=== PATIENT | male | born 1955 | race Caucasian/White ===

== ENCOUNTER → 2017-05-25 | Outpatient (CLI) | payer BC, OTHER ==
--- NOTE | 2017-05-25 09:41 | Diagnostic Imaging Report ---
CLINICAL INDICATION: Patient with chronic low back pain with bilateral leg pain. No known injury. EXAM: MRI of the lumbar spine performed without IV contrast. Sequences include sagittal T2, sagittal T1, sagittal T2 fat-sat, and axial T2. COMPARISON: MRI of the lumbar spine without contrast dated 02/14/2014. FINDINGS: There is no acute lumbar spine fracture seen. There is multilevel lumbar spine degenerative disease with vertebral body spurs and facet arthropathy again noted. There is mixed Modic type I/type II degenerative signal changes involving the L1-L2 intervertebral region. Visualized portion of the distal thoracic spinal cord, conus medullaris, and cauda equina nerve roots are unremarkable. Conus medullaris tip is seen at the upper L1 vertebral body level. There is no significant paraspinal soft tissue abnormality. T12-L1: There is no significant abnormality. L1-L2: Stable diffuse disc bulge and moderate to severe loss of intervertebral disc height. Stable mild bilateral facet arthropathy. There is mild to moderate central canal narrowing and mild bilateral neural foramen narrowing. L2-L3: There is no significant change to the diffuse disc bulge with mild loss of intervertebral disc height. There are stable disc spurs extending into the foraminal regions bilaterally. Stable mild right neural foramen narrowing and mild to moderate left neural foramen narrowing. There is stable moderate central canal narrowing. L3-L4: Stable grade 1 retrolisthesis of L3 on L4. There is a diffuse disc bulge with moderate loss of intervertebral disc height and disc spurs extending into the foraminal regions bilaterally. There is moderate bilateral facet arthropathy/hypertrophy. There is mild to moderate central canal narrowing and moderate bilateral neural foramen narrowing which is stable. L4-5: Stable severe bilateral facet arthropathy/hypertrophy and ligamentum flavum buckling. There is a diffuse disc bulge with moderate loss of intervertebral disc height. There are disc spurs extending into the foraminal regions bilaterally. There is stable severe central canal narrowing and severe bilateral neural foramen narrowing. The previously seen bilateral facet degenerative effusions have decreased. L5-S1: Stable small posterior disc bulge. There is severe bilateral facet arthropathy/hypertrophy (right side more than the left). There is mild central canal narrowing. There is stable moderate right neural foramen narrowing and mild left neural foramen narrowing. IMPRESSION: 1: There is no significant change to the severe multilevel lumbar spine degenerative disc disease with diffuse disc bulges and facet arthropathy. 2: There is stable grade 1 retrolisthesis of L3 on L4. Dictated by: Dictated on workstation # [id number]
== END ==
LOC: RAD 08:17
PROVIDERS: ATTEND Nurse Practitioner Family
DX: M47.816 Spondylosis without myelopathy or radiculopathy, lumbar region (principal); M51.26 Other intervertebral disc displacement, lumbar region; M46.86 Other specified inflammatory spondylopathies, lumbar region; M43.16 Spondylolisthesis, lumbar region
CPT/HCPCS: 72148

== ENCOUNTER → 2018-02-23 | Outpatient (CLI) | payer OTHER ==
--- NOTE | 2018-02-23 11:25 | Diagnostic Imaging Report ---
Left knee at 1111 hours. INDICATION: Knee pain. 3 views were obtained. There are no prior studies available for comparison. FINDINGS: There is no fracture, dislocation or acute bony abnormality evident. There is moderate narrowing of the medial compartment of the knee joint and of the patellofemoral space. The lateral compartment is fairly well-maintained. There does appear to be chondrocalcinosis of both menisci, however. The lateral view does show that there is a joint effusion present. The soft tissues are otherwise unremarkable. IMPRESSION: 1. There is no evidence for an acute bony abnormality. 2. There is degenerative disease involving the knee joint with the medial compartment and patellofemoral space the most severely affected. 3. There is a joint effusion present. Dictated by: Dictated on workstation # [id number]
== END ==
LOC: RAD 10:23
DX: M17.12 Unilateral primary osteoarthritis, left knee (principal)
CPT/HCPCS: 73562

== ENCOUNTER → 2018-03-10 | Outpatient (CLI) | payer OTHER ==
--- NOTE | 2018-03-10 15:03 | Diagnostic Imaging Report ---
EXAMINATION: Magnetic resonance imaging of the left knee without intravenous contrast. DATE: March 10, 2018. COMPARISON: Left knee radiographs, February 23, 2018. INDICATION: 62-year-old male, chronic left knee pain. TECHNIQUE: Multiplanar, multisequence noncontrast enhanced MR imaging was accomplished. FINDINGS: MENISCI: There is an extensive complex tear involving the entire medial meniscus. There is medial meniscal extrusion, measuring 7 mm with extension of medial meniscal tissue into the inferior gutter. There is a multidirectional tear involving the anterior horn/body junction, body and posterior horn of the lateral meniscus. LIGAMENTS AND TENDONS: There is increased signal within the anterior cruciate ligament with intact ligament fibers compatible with mucoid degeneration of the anterior cruciate ligament. The posterior cruciate ligament is intact. There is mass effect on the superficial component of the medial collateral ligament complex relating to the extruded medial meniscus as well as medial compartment osteophytes. There is no tear of the superficial component of the medial collateral ligament complex. The iliotibial band, mid third lateral capsular ligament, fibular collateral ligament, biceps femoris tendon and conjoined tendon are intact. The distal quadriceps tendon and patellar tendon are intact. JOINT: There is slight superficial irregularity and fissuring of the cartilage of the median patellar ridge. There is also mild fissuring of the cartilage of the femoral trochlea. There are broad areas of full-thickness medial compartment cartilage loss. There is a roughly 75% thickness cartilage defect involving the mid weightbearing portion of the lateral femoral condyle with subjacent thinning of the lateral tibial plateau cartilage. There is a small knee joint effusion. There is low level synovitis. There is no identified intra-articular body. BONE: There is a mature well-corticated area of ossification adjacent to the anterior tibial tubercle which may relate to sequela of remote prior [place]-Slatter disease or sequela of remote prior trauma. There is low level degenerative related marrow edema adjacent to the medial joint compartment. There is no acute fracture, bone contusion or evidence of osteonecrosis. BURSAE AND SOFT TISSUES: There is very minimal fluid within the popliteal fossa without sizable Blankenship's cyst. There is nonspecific prepatellar subcutaneous edema. There is edema within Hoffa's fat. IMPRESSION: 1. Extensive complex tear involving the entire medial meniscus with medial meniscal extrusion and extension of medial meniscal tissue into the inferior gutter. 2. Complex multidirectional tear involving the anterior horn/body junction, body and posterior horn of the lateral meniscus. 3. Mucoid degeneration of the anterior cruciate ligament which is without tear. Intact posterior cruciate ligament. Additional ligaments and tendons are intact. 4. Severe medial and very mild patellofemoral compartment osteoarthritis. Small knee joint effusion with low level synovitis. 5. No acute fracture, bone contusion or evidence of osteonecrosis. Dictated by: Dictated on workstation # [id number]
== END ==
LOC: RAD 09:52
DX: M23.232 Derangement of other medial meniscus due to old tear or injury, left knee (principal); M23.242 Derangement of anterior horn of lateral meniscus due to old tear or injury, left knee; M23.252 Derangement of posterior horn of lateral meniscus due to old tear or injury, left knee; M65.9 Synovitis and tenosynovitis, unspecified
CPT/HCPCS: 73721

== ENCOUNTER 2018-06-23 09:03 | Observation (INO) | payer OTHER ==
[~2018-06-23] VITALS: Ht 188 cm; Wt 105.7 kg
[2018-06-23 09:42] LABS: BASOPHILS % (AUTO) 0 % (0-10); EOSINOPHILS # (AUTO) 0.2 10^3/uL (0.0-0.3); EOSINOPHILS % (AUTO) 2 % (0-10); HEMATOCRIT 42 % (40-54); HEMOGLOBIN 14.8 G/DL (13.3-17.7); LYMPHOCYTES # (AUTO) 0.7 X 10^3 (1.0-4.0); LYMPHOCYTES % (AUTO) 7 % (12-44); MEAN CORPUSCULAR HEMOGLOBIN 32 PG (25-34); MEAN CORPUSCULAR HGB CONC 35 G/DL (32-36); MEAN CORPUSCULAR VOLUME 91 FL (80-99); MEAN PLATELET VOLUME 9.9 FL (7.4-10.4); MONOCYTES # (AUTO) 0.8 X 10^3 (0.0-1.0); MONOCYTES % (AUTO) 7 % (0-12); NEUTROPHILS # (AUTO) 9.4 X 10^3 (1.8-7.8); NEUTROPHILS % (AUTO) 85 % (42-75); PLATELET COUNT 244 10^3/uL (130-400); RED CELL DISTRIBUTION WIDTH 12.8 % (10.0-14.5); WHITE BLOOD COUNT 11.2 10^3/uL (4.3-11.0)
[2018-06-23] MEDS ORDERED: FENO200C PO (09:47)
[2018-06-23] MEDS ORDERED: SIMV40TA4 PO (09:47)
[2018-06-23] MEDS ORDERED: OXYC-465 PO (09:47)
[2018-06-23] MEDS ORDERED: CITA20TA9 PO (09:47)
[2018-06-23] MEDS ORDERED: LOSA1TAB26 PO (09:47)
[2018-06-23 09:59] LABS: ALANINE AMINOTRANSFERASE 37 U/L (0-55); ALBUMIN 4.5 GM/DL (3.2-4.5); ALKALINE PHOSPHATASE 43 U/L (40-136); BILIRUBIN,TOTAL 0.7 MG/DL (0.1-1.0); BUN/CREATININE RATIO 16; CALCIUM 9.8 MG/DL (8.5-10.1); CARBON DIOXIDE 23 MMOL/L (21-32); CHLORIDE 101 MMOL/L (98-107); CREATININE SERUM 1.14 MG/DL (0.60-1.30); GFR ESTIMATED > 60; GLUCOSE 136 MG/DL (70-105); LIPASE 446 U/L (8-78); POTASSIUM 3.4 MMOL/L (3.6-5.0); SODIUM 135 MMOL/L (135-145); TOTAL PROTEIN 7.6 GM/DL (6.4-8.2)
[2018-06-23 10:01] LABS: BAND NEUTROPHILS 1 %; BASOPHILS % (MANUAL) 0 %; EOSINOPHILS % (MANUAL) 1 %; LYMPHOCYTES % (MANUAL) 3 %; MONOCYTES % (MANUAL) 4 %; NEUTROPHILS % (MANUAL) 84 %; PLATELET CLUMPS SLIGHT; REACTIVE LYMPHOCYTES 7 %
[2018-06-23 10:02] LABS: POIKILOCYTOSIS SLIGHT; STOMATOCYTES SLIGHT; TOXIC GRANULATION/VACUOLAZATIO 1+
[2018-06-23] MEDS ORDERED: NS IV 1000 ML 1,000 ML IV ONE (10:10)
[2018-06-23] MEDS ORDERED: fentaNYL INJECTION 100 MCG/2 ML AMP IVP ONE ×2 (10:15→13:15)
[2018-06-23] MEDS ORDERED: IOHEXOL 350 MG/ML 100 ML (OMNIPAQUE 350) VIAL IV ONE (10:30)
[2018-06-23] MEDS ORDERED: RECEIVED CONTRAST (Hold Metformin) IV SCH (10:30)
[2018-06-23] MEDS ORDERED: NS 100 ML (IVPB) BAG IV ONE (10:30)
--- NOTE | 2018-06-23 11:00 | NUR ---
ASKED PT IF HE COULD PEE FOR US HE STILL STATES HE DOES NOT HAVE TOO.
--- NOTE | 2018-06-23 11:14 | Diagnostic Imaging Report ---
PROCEDURE: CT abdomen and pelvis with contrast. TECHNIQUE: Multiple contiguous axial images were obtained through the abdomen and pelvis after administration of intravenous contrast. INDICATION: Abdominal pain. COMPARISON: None. FINDINGS: There is infiltrate in the right lung base with subsegmental atelectasis. Please exclude pneumonia on clinical bases. Left lung is clear. There is moderate inflammatory change involving the pancreatic head and secondarily the second portion of the duodenum. The body and tail of pancreas appear normal. There is no obvious mass. Findings likely represent acute pancreatitis. There is no pseudocyst formation. No necrosis or abscess is seen. There is mild fatty infiltration of the liver. The gallbladder, spleen, adrenal glands, kidneys, vascular structures and bowel are unremarkable. There is some mild distention of the urinary bladder. Slight prostate enlargement is seen. There is no hernia. The course and caliber of the large and small bowel is unremarkable. Minimal atherosclerosis seen throughout the abdominal aorta without aneurysm. Osseous structures are age-appropriate. IMPRESSION: 1. Moderate inflammatory change involving the pancreatic head concerning for pancreatitis. No pseudocyst formation, necrosis or obvious mass is seen. Followup is recommended. Please correlate pancreatic enzymes. 2. Subsegmental atelectasis and/or infiltrate in the right lung base. 3. Prostate enlargement with slight distention of the urinary bladder. 4. Atherosclerosis of the abdominal aorta without evidence of aneurysm. Dictated by: Dictated on workstation # [id number]
[2018-06-23 11:45] LABS: BILIRUBIN,URINE NEGATIVE (NEGATIVE); CLARITY,URINE CLEAR; COLOR,URINE YELLOW; GLUCOSE, URINE (UA) NEGATIVE (NEGATIVE); KETONES,URINE NEGATIVE (NEGATIVE); LEUKOCYTE ESTERASE ,URINE NEGATIVE (NEGATIVE); NITRITE,URINE NEGATIVE (NEGATIVE); PH,URINE 6.5 (5-9); PROTEIN,URINE 1+ (NEGATIVE); UROBILINOGEN,URINE NORMAL (NORMAL)
[2018-06-23 12:05] LABS: BACTERIA,URINE NEGATIVE /HPF; RBC,URINE RARE /HPF; SQUAMOUS EPITHELIAL CELL,UR RARE /HPF; WBC,URINE RARE /HPF
[2018-06-23] MEDS ORDERED: LIDOCAINE 2% VISCOUS 15 ML UDC PO ONE (12:15)
[2018-06-23] MEDS ORDERED: ANTACID SUSP 30 ML UDC (MYLANTA) PO ONE (12:15)
--- NOTE | 2018-06-23 12:28 | ED Abdominal Pain ---
General Chief Complaint: Abdominal/GI Problems Stated Complaint: UPPER RIGHT ABD PAIN Nursing Triage Note: ARRIVED VIA AMB TO ROOM 03 BY NURSINGS STUDENT. COMPLAINS OF RUQ PAIN FOR A COUPLE OF DAYS ET WAS SEEN BY HIS DR YESTERDAY ET THINKS IT IS HIS GALLBLADDER. Sepsis Screen: No Definite Risk Source of Information: Patient, Old Records Exam Limitations: No Limitations History of Present Illness Date Seen by Provider: Jun 23, 2018 Time Seen by Provider: 09:05 Initial Comments Patient presents to the emergency room with intense right upper quadrant pain. He has been assessed previously for this intermittent pain by ultrasound of the gallbladder in December. Pain is been intermittent since having back surgery in August. He was seen at Dr. Middleton's office yesterday and prescribed oxycodone 10 mg. He reports the oxycodone did not even touch his pain this morning. He has had some nausea without vomiting. Patient admits to drinking at least one large mixed drink each evening. He is scheduled for a hepatobiliary scan in the morning. He presents to the ER this morning because he could not tolerate the pain any longer. Allergies and Home Medications Allergies Coded Allergies: No Known Drug Allergies (Unverified , 06/09/10) Home Medications Alprazolam 0.5 Mg Tablet, 0.5 MG PO TID PRN for ANXIETY, (Reported) Aspirin 81 Mg Tablet., 81 MG PO DAILY, (Reported) Bacillus Coagulans 1 Each Tab.chew, 2 TAB PO DAILY, (Reported) Citalopram Hydrobromide 20 Mg Tablet, 20 MG PO DAILY, (Reported) Fenofibrate,Micronized 200 Mg Capsule, 200 MG PO DAILY, (Reported) Glucosamine/D3/Boswellia Jesi 1 Each Tablet, 2 TAB PO DAILY, (Reported) Losartan/Hydrochlorothiazide 1 Each Tablet, 1 TAB PO DAILY, (Reported) Multivitamin/Iron/Folic Acid 1 Each Tablet, 1 TAB PO DAILY, (Reported) [place] 3 Polyunsat Fatty Acids 1,000 Mg Cap, 2,000 MG PO DAILY, (Reported) Oxycodone HCl/Acetaminophen 1 Each Tablet, 1 TAB PO Q6H PRN for PAIN-MODERATE, ( Reported) Pantoprazole Sodium 40 Mg Tablet., 40 MG PO DAILY, (Reported) Simvastatin 40 Mg Tablet, 40 MG PO DAILY, (Reported) Patient Home Medication List Home Medication List Reviewed: Yes Review of Systems Review of Systems Constitutional: no symptoms reported EENTM: No Symptoms Reported Respiratory: No Symptoms Reported Cardiovascular: No Symptoms Reported Gastrointestinal: See HPI Genitourinary: No Symptoms Reported Musculoskeletal: no symptoms reported Skin: no symptoms reported Psychiatric/Neurological: No Symptoms Reported Endocrine: No Symptoms Reported Hematologic/Lymphatic: No Symptoms Reported Past [id number]-Mdfdin-Gwseqj Hx Past Med/Social Hx: Reviewed and Corrections made Patient Social History Alcohol Use: Regular Use Recent Foreign Travel: No Contact w/Someone Who Travel: No Recent Infectious Disease Expo: No Recent Hopitalizations: No Seasonal Allergies Seasonal Allergies: No Past Medical History Surgeries: Yes (SPINE) Orthopedic Respiratory: No Cardiac: Yes High Cholesterol, Hypertension Neurological: No Genitourinary: No Gastrointestinal: No Musculoskeletal: No Endocrine: No HEENT: No Cancer: No Psychosocial: Yes (Alcohol dependence) Integumentary: No Physical Exam Vital Signs Vital Signs - First Documented 06/23/18 09:20 Temp 98.6 Pulse 58 Resp 16 B/P (MAP) 162/92 (115) Pulse Ox 97 O2 Delivery Room Air Capillary Refill : Less Than 3 Seconds Height/Weight/BMI Height: 6'2.00" Weight: 235lbs. oz. 106.621588cw; BMI Method:Stated General Appearance: WD/WN, mild distress HEENT: PERRL/EOMI, normal ENT inspection, pharynx normal Neck: normal inspection Respiratory: lungs clear, normal breath sounds, no respiratory distress, no accessory muscle use Cardiovascular: regular rate, rhythm, no edema, no murmur Gastrointestinal: normal bowel sounds, soft, tenderness (Right upper quadrant) , other (Questionable small umbilical hernia) Extremities: normal inspection, no pedal edema Neurologic/Psychiatric: vp packaging II-XII nml as tested, no motor/sensory deficits, alert, normal mood/affect, oriented x 3 Skin: normal color, warm/dry Progress/Results/Core Measures Results/Orders Lab Results Laboratory Tests Test 06/23/18 09:35 06/23/18 09:38 06/23/18 11:40 Range/Units Triglycerides Level 132 <150 MG/DL Cholesterol Level 155 < 200 MG/DL LDL Cholesterol Direct 75 1-129 MG/DL VLDL Cholesterol 26 5-40 MG/DL HDL Cholesterol 57 40-60 MG/DL White Blood Count 11.2 H 4.3-11.0 10^3/uL Red Blood Count 4.61 4.35-5.85 10^6/uL Hemoglobin 14.8 13.3-17.7 G/DL Hematocrit 42 40-54 % Mean Corpuscular Volume 91 80-99 FL Mean Corpuscular Hemoglobin 32 25-34 PG Mean Corpuscular Hemoglobin Concent 35 32-36 G/DL Red Cell Distribution Width 12.8 10.0-14.5 % Platelet Count 244 130-400 10^3/uL Mean Platelet Volume 9.9 7.4-10.4 FL Neutrophils (%) (Auto) 85 H 42-75 % Lymphocytes (%) (Auto) 7 L 12-44 % Monocytes (%) (Auto) 7 0-12 % Eosinophils (%) (Auto) 2 0-10 % Basophils (%) (Auto) 0 0-10 % Neutrophils # (Auto) 9.4 H 1.8-7.8 X 10^3 Lymphocytes # (Auto) 0.7 L 1.0-4.0 X 10^3 Monocytes # (Auto) 0.8 0.0-1.0 X 10^3 Eosinophils # (Auto) 0.2 0.0-0.3 10^3/uL Basophils # (Auto) 0.0 0.0-0.1 10^3/uL Neutrophils % (Manual) 84 % Lymphocytes % (Manual) 3 % Monocytes % (Manual) 4 % Eosinophils % (Manual) 1 % Basophils % (Manual) 0 % Band Neutrophils 1 % Reactive Lymphocytes 7 % Toxic Granulation 1+ Clumped Platelets SLIGHT Poikilocytosis SLIGHT Stomatocytes SLIGHT Sodium Level 135 135-145 MMOL/L Potassium Level 3.4 L 3.6-5.0 MMOL/L Chloride Level 101 98-107 MMOL/L Carbon Dioxide Level 23 21-32 MMOL/L Anion Gap 11 5-14 MMOL/L Blood Urea Nitrogen 18 7-18 MG/DL Creatinine 1.14 0.60-1.30 MG/DL Estimat Glomerular Filtration Rate > 60 BUN/Creatinine Ratio 16 Glucose Level 136 H 70-105 MG/DL Calcium Level 9.8 8.5-10.1 MG/DL Corrected Calcium 9.4 8.5-10.1 MG/DL Total Bilirubin 0.7 0.1-1.0 MG/DL Aspartate Amino Transf (AST/SGOT) 32 5-34 U/L Alanine Aminotransferase (ALT/SGPT) 37 0-55 U/L Alkaline Phosphatase 43 40-136 U/L Total Protein 7.6 6.4-8.2 GM/DL Albumin 4.5 3.2-4.5 GM/DL Lipase 446 H 8-78 U/L Urine Color YELLOW Urine Clarity CLEAR Urine pH 6.5 5-9 Urine Specific [place] 1.010 L 1.016-1.022 Urine Protein 1+ H NEGATIVE Urine Glucose (UA) NEGATIVE NEGATIVE Urine Ketones NEGATIVE NEGATIVE Urine Nitrite NEGATIVE NEGATIVE Urine Bilirubin NEGATIVE NEGATIVE Urine Urobilinogen NORMAL NORMAL MG/DL Urine Leukocyte Esterase NEGATIVE NEGATIVE Urine RBC (Auto) NEGATIVE NEGATIVE Urine RBC RARE /HPF Urine WBC RARE /HPF Urine Squamous Epithelial Cells RARE /HPF Urine Renal Epithelial Cells NONE /HPF Urine Crystals NONE /LPF Urine Bacteria NEGATIVE /HPF Urine Casts NONE /LPF Urine Mucus NEGATIVE /LPF Urine Culture Indicated NO My Orders Orders - AKSHAT GALDAMEZ MD Cbc With Automated Diff (06/23/18 09:05) Comprehensive Metabolic Panel (06/23/18 09:05) Lipase (06/23/18 09:05) Ua Culture If Indicated (06/23/18 09:05) Saline Lock/Iv-Start (06/23/18 09:05) Manual Differential (06/23/18 09:38) Ns Iv 1000 Ml (Sodium Chloride 0.9%) (06/23/18 10:10) Fentanyl Injection (Sublimaze Injection (06/23/18 10:15) Ct Abdomen/Pelvis W (06/23/18 10:18) Iohexol Injection (Omnipaque 350 Mg/Ml 1 (06/23/18 10:30) Contrast Received (Contrast Received) (06/23/18 10:30) Ns (Ivpb) (Sodium Chloride 0.9% Ivpb Bag (06/23/18 10:30) Lidocaine 2% Viscous 15 Ml (Xylocaine Vi (06/23/18 12:15) Antacid Suspension (Mylanta Suspension (06/23/18 12:15) Medications Given in ED Current Medications Medications Dose Ordered Sig/Deanna Route Start Time Stop Time Status Last Admin Dose Admin Al Hydrox/Mg Hydrox/Simethicone 30 ml ONCE ONCE PO 06/23/18 12:15 06/23/18 12:16 DC 06/23/18 12:33 30 ML Fentanyl Citrate 75 mcg ONCE ONCE IVP 06/23/18 10:15 06/23/18 10:16 DC 06/23/18 10:19 75 MCG Iohexol 100 ml ONCE ONCE IV 06/23/18 10:30 06/23/18 11:03 DC 06/23/18 10:43 100 ML Lidocaine HCl 15 ml ONCE ONCE PO 06/23/18 12:15 06/23/18 12:16 DC 06/23/18 12:33 15 ML Sodium Chloride 100 ml ONCE ONCE IV 06/23/18 10:30 06/23/18 11:03 DC 06/23/18 10:43 80 ML Sodium Chloride 1,000 ml @ 0 mls/hr Q0M ONCE IV 06/23/18 10:10 06/23/18 10:11 DC 06/23/18 10:19 1,000 MLS/HR Vital Signs/I&O 06/23/18 09:20 Temp 98.6 Pulse 58 Resp 16 B/P (MAP) 162/92 (115) Pulse Ox 97 O2 Delivery Room Air Blood Pressure Mean: 115 Progress Progress Note : Progress Note Patient was treated with IV fluids and fentanyl. Workup was pursued. Lipase was mildly elevated. Patient was offered further evaluation with CT of the abdomen and pelvis. Patient was in enough pain that he wanted to do anything he could to discover the root of his pain. CT was obtained which revealed pancreatitis. However, the location of his pain seemed to be more on the right side. There for further evaluation with hepatobiliary scan was felt appropriate. I offered admission for supportive care and IV hydration during a period of nothing by mouth for GI rest. Patient was agreeable. We will pursue the hepatobiliary scan in the morning. A GI cocktail was trialed to further treat his pain. This did not improve his pain and in fact caused him to vomit. Patient was treated with Zofran and morphine fentanyl was given for pain. Dr. Gallo was consulted at Dr. Mike's request. Diagnostic Imaging Diagonstic Imaging: CT Plain Films/CT/US/NM/MRI: abdomen, pelvis Comments CT abdomen and pelvis viewed by me and report reviewed. See report below: NAME: J[facility] REC#: [id number] PT STATUS: REG ER : [id number] PHYSICIAN: AKSHAT GALDAMEZ MD ADMIT DATE: 06/23/18/ER Draft Date of Exam:06/23/18 CT ABDOMEN/PELVIS W PROCEDURE: CT abdomen and pelvis with contrast. TECHNIQUE: Multiple contiguous axial images were obtained through the abdomen and pelvis after administration of intravenous contrast. INDICATION: Abdominal pain. COMPARISON: None. FINDINGS: There is infiltrate in the right lung base with subsegmental atelectasis. Please exclude pneumonia on clinical bases. Left lung is clear. There is moderate inflammatory change involving the pancreatic head and secondarily the second portion of the duodenum. The body and tail of pancreas appear normal. There is no obvious mass. Findings likely represent acute pancreatitis. There is no pseudocyst formation. No necrosis or abscess is seen. There is mild fatty infiltration of the liver. The gallbladder, spleen, adrenal glands, kidneys, vascular structures and bowel are unremarkable. There is some mild distention of the urinary bladder. Slight prostate enlargement is seen. There is no hernia. The course and caliber of the large and small bowel is unremarkable. Minimal atherosclerosis seen throughout the abdominal aorta without aneurysm. Osseous structures are age-appropriate. IMPRESSION: 1. Moderate inflammatory change involving the pancreatic head concerning for pancreatitis. No pseudocyst formation, necrosis or obvious mass is seen. Followup is recommended. Please correlate pancreatic enzymes. 2. Subsegmental atelectasis and/or infiltrate in the right lung base. 3. Prostate enlargement with slight distention of the urinary bladder. 4. Atherosclerosis of the abdominal aorta without evidence of aneurysm. Dictated on workstation # [id number] Dict: 06/23/18 1103 Trans: 06/23/18 1113 [facility] [id number] Interpreted by: CHERRY TORRES Departure Communication (Admissions) Time/Spoke to Admitting Phy: 12:05 Dr. Rashid Gallo Impression Primary Impression: Right upper quadrant pain Additional Impressions: Pancreatitis Qualified Codes: K85.20 - Alcohol induced acute pancreatitis without necrosis or infection Alcohol dependence Qualified Codes: F10.288 - Alcohol dependence with other alcohol-induced disorder Disposition: ADMITTED INPATIENT Condition: Improved Admissions Decision to Admit Reason: Admit from ER (General) Decision to Admit/Date: Jun 23, 2018 Time/Decision to Admit Time: 12:00 Departure-Patient Inst. Referrals: CARMELITA MIDDLETON MD (PCP/Family) Primary Care Physician AKSHAT GALDAMEZ MD Jun 23, 2018 12:28
--- NOTE | 2018-06-23 12:44 | NUR ---
DR SWAIN IN ROOM WITH PT AT THIS TIME
--- NOTE | 2018-06-23 12:47 | NUR ---
ATTEMPT TO CALL REPORT ET NURSE UNAVAILABLE
--- NOTE | 2018-06-23 13:06 | NUR ---
[facility] REPOR[facility] PT VOMITED WHEN HE STOOD UP TO GET INTO WC. DR ALBAFIED.
--- NOTE | 2018-06-23 13:06 | History & Physical-Hospitalist ---
History of Present Illness HPI/Chief Complaint Pt is a 62yoCM with a PMH of HTN who presented to the ER due to RUQ pain. He states his symptoms have been going on and off for the past few months. He underwent abdominal usg in 12/2017 which revealed no gallstones and mild hepatomegaly. His symptoms continued to worsen and he was seen by his PCP yesterday where he was prescribed oxycodone and and a hepatobillary scan was ordered for tomorrow. His pain continued to worsen and did not improve with the oxycodone he was prescribed prompting him to seek care in the ER. He does endorse a history of daily alcohol use. Source: patient Exam Limitations: no limitations Date Seen 06/23/18 Time Seen by a Provider: 12:57 Attending Physician Dick Mike MD PCP Britton Doran MD Referring Physician Date of Admission Jun 23, 2018 at 12:39 Home Medications & Allergies Home Medications Reviewed patient Home Medication Reconciliation performed by pharmacy medication reconciliations histology technician and/or nursing. Patients Allergies have been reviewed. Allergies Allergies Coded Allergies No Known Drug Allergies (Unverified06/09/10) Past Tsmpnrf-Ehqzpb-Oszixa Hx Past Med/Social Hx: Reviewed Nursing Past Med/Soc Hx Patient Social History Marrital Status: Alcohol Use: Regular Use Recent Foreign Travel: No Contact w/other who traveled: No Recent Hopitalizations: No Recent Infectious Disease Expo: No Seasonal Allergies Seasonal Allergies: No Past Medical History Surgeries: Orthopedic (back surgery) Cardiac: High Cholesterol, Hypertension Family History Reviewed Nursing Family Hx No Pertinent Family Hx Review of Systems Constitutional: No fever EENTM: no symptoms reported Respiratory: no symptoms reported Cardiovascular: no symptoms reported Gastrointestinal: abdominal pain, diarrhea; No nausea, No vomiting Genitourinary: no symptoms reported Musculoskeletal: no symptoms reported Skin: no symptoms reported Psychiatric/Neurological: No Symptoms Reported Physical Exam Physical Exam Vital Signs Vital Signs - First Documented 06/23/18 09:20 Temp 98.6 Pulse 58 Resp 16 B/P (MAP) 162/92 (115) Pulse Ox 97 O2 Delivery Room Air Capillary Refill : Less Than 3 Seconds Height, Weight, BMI Height: 6'2.00" Weight: 235lbs. oz. 106.353688zd; BMI Method:Stated General Appearance: No Apparent Distress, WD/WN HEENT: PERRL/EOMI, Moist Mucous Membranes Neck: Non Tender, Supple Respiratory: Lungs Clear, No Respiratory Distress Cardiovascular: Regular Rate, Rhythm, No Murmur Gastrointestinal: Normal Bowel Sounds, Non Tender, Soft; No Distended, No Guarding Extremity: Normal Capillary Refill, No Calf Tenderness Neurologic/Psychiatric: Alert, Oriented x3, Normal Mood/Affect Skin: Normal Color, Warm/Dry Results Results/Procedures Labs Laboratory Tests 06/23/18 09:38 Patient resulted labs reviewed. Imaging: Reviewed Imaging Report Imaging Date of Exam:06/23/18 CT ABDOMEN/PELVIS W PROCEDURE: CT abdomen and pelvis with contrast. TECHNIQUE: Multiple contiguous axial images were obtained through the abdomen and pelvis after administration of intravenous contrast. INDICATION: Abdominal pain. COMPARISON: None. FINDINGS: There is infiltrate in the right lung base with subsegmental atelectasis. Please exclude pneumonia on clinical bases. Left lung is clear. There is moderate inflammatory change involving the pancreatic head and secondarily the second portion of the duodenum. The body and tail of pancreas appear normal. There is no obvious mass. Findings likely represent acute pancreatitis. There is no pseudocyst formation. No necrosis or abscess is seen. There is mild fatty infiltration of the liver. The gallbladder, spleen, adrenal glands, kidneys, vascular structures and bowel are unremarkable. There is some mild distention of the urinary bladder. Slight prostate enlargement is seen. There is no hernia. The course and caliber of the large and small bowel is unremarkable. Minimal atherosclerosis seen throughout the abdominal aorta without aneurysm. Osseous structures are age-appropriate. IMPRESSION: 1. Moderate inflammatory change involving the pancreatic head concerning for pancreatitis. No pseudocyst formation, necrosis or obvious mass is seen. Followup is recommended. Please correlate pancreatic enzymes. 2. Subsegmental atelectasis and/or infiltrate in the right lung base. 3. Prostate enlargement with slight distention of the urinary bladder. 4. Atherosclerosis of the abdominal aorta without evidence of aneurysm. Assessment/Plan Admission Diagnosis Pancreatitis Admission Status: Observation Diagnosis/Problems Diagnosis/Problems (1) Pancreatitis Status: Acute Assessment & Plan: Pancreatitis noted on CT Lipase 446 NPO IVF Fentanyl prn pain Surgery consulted Qualifiers: Chronicity: acute Pancreatitis type: alcohol induced Acute pancreatitis complication: no infection or necrosis Qualified Codes: K85.20 - Alcohol induced acute pancreatitis without necrosis or infection (2) CAP (community acquired pneumonia) Assessment & Plan: Will cover with cap coverage given mild leukocytosis Not sepsis Some pain may be referred from pneumonia Qualifiers: Laterality: right Lung location: lower lobe of lung Qualified Codes: J18.1 - Lobar pneumonia, unspecified organism (3) Right upper quadrant pain Status: Acute Assessment & Plan: Hepatobiliary scan tomorrow Surgery consulted, appreciate recs (4) Alcohol dependence Status: Acute Qualifiers: Substance use status: other alcohol-induced disorder Qualified Codes: F10.288 - Alcohol dependence with other alcohol-induced disorder (5) Essential (primary) hypertension Assessment & Plan: Elevated on arrival, likely due to pain Trend DICK MIKE MD Jun 23, 2018 13:05
[2018-06-23] MEDS ORDERED: ONDANSETRON 4 MG/2 ML (SDV) Z0FRAN ONE (13:07)
[2018-06-23] MEDS ORDERED: fentaNYL INJECTION 100 MCG/2 ML AMP ONE (13:07)
[2018-06-23] MEDS ORDERED: ONDANSETRON 4 MG/2 ML (SDV) Z0FRAN IVP ONE (13:15)
--- NOTE | 2018-06-23 13:27 | NUR ---
JC NANCE JR admitted to room 418-1, with an admitting diagnosis of PANCREATITIS, RUQ PAIN, on 06/23/18 from ID via , accompanied by .JC NANCE JR introduced to surroundings, call light, bed controls, phone, TV, temperature control, lights, meal times, smoking policy, visitor policy, side rail policy, bathrooms and showers. Patient Rights given to patient in the handbook. JC NANCE JR verbalizes understanding that [facility] is not responsible for the loss or damage to any personal effects or valuables that are kept in the patients posession during their hospitalization. The following Patient Care Plans were discussed with the PT: Discharge Planning, INEFF BREATHING PATTERN, PAIN, AND VOL DEFICIT. JC NANCE JR verbalizes understanding of Interdisciplinary Patient Education. Patient and/or family were informed about the Rapid Response Team and its purpose. CAME TO FLOOR WITH LB IN L AC
[2018-06-23 13:30] VITALS: BP 144/82
[2018-06-23 13:39] LABS: CHOLESTEROL 155 MG/DL (< 200); HDL CHOLESTEROL 57 MG/DL (40-60); TRIGLYCERIDES 132 MG/DL (<150); VLDL CHOLESTEROL 26 MG/DL (5-40)
[2018-06-23] MEDS ORDERED: D5 1/2 NS W/KCL 20 MEQ/L 1,000 ML IV SCH (14:23)
[2018-06-23] MEDS ORDERED: ONDANSETRON 4 MG/2 ML (SDV) Z0FRAN IV PRN ×2 (14:30)
[2018-06-23] MEDS ORDERED: LORazepam 1 MG (ATIVAN) TAB PO PRN (14:30)
[2018-06-23] MEDS ORDERED: SENNA W/DOCUSATE (SENOKOT S) TABLET PO PRN (14:30)
[2018-06-23] MEDS ORDERED: ANTACID SUSP 30 ML UDC (MYLANTA) PO PRN (14:30)
[2018-06-23] MEDS ORDERED: CATHETER FLUSH 10 ML SYR IV PRN (14:30)
[2018-06-23] MEDS ORDERED: LORazepam INJ 2 MG/ML (ATIVAN) VIAL IM/IV PRN (14:30)
[2018-06-23] MEDS ORDERED: ONDANSETRON 4 MG (ZOFRAN) ORAL DISSOLVE TAB SL PRN (14:30)
[2018-06-23] MEDS ORDERED: LORazepam INJ 2 MG/ML (ATIVAN) VIAL IV PRN (14:30)
[2018-06-23] MEDS ORDERED: ALPR0.5T7 PO (14:43)
[2018-06-23] MEDS ORDERED: PANT40TA3 PO (14:43)
[2018-06-23] MEDS ORDERED: ASPI-983 PO (14:48)
[2018-06-23] MEDS ORDERED: BACI1TAB3 PO (14:48)
[2018-06-23] MEDS ORDERED: MULT-1067 PO (14:48)
[2018-06-23] MEDS ORDERED: GLUC-219 PO (14:48)
[2018-06-23] MEDS ORDERED: OMG1KC PO (14:48)
--- NOTE | 2018-06-23 14:50 | NUR ---
SPOKE WITH THE PATIENT ABOUT HIS MEDICATIONS. WE WENT OVER THE EXT MED HX AND HE VERIFIED HOW HE TAKES THEM. HE ALSO LISTED HIS OTC MEDS. OTC MEDS: ASPIRIN 81MG DAILY MTV DAILY FISH OIL 2 DAILY OSTEO BI FLEX 2 DAILY PROBIOTIC CHEW 2 DAILY
[2018-06-23] MEDS: D5 1/2 NS W/KCL 20 MEQ/L 1,000 ML IV SCH (14:53)
[2018-06-23] MEDS: PANTOPRAZOLE 40 MG (PROTONIX) VIAL IV SCH ×2 (14:59→20:20)
[2018-06-23] MEDS ORDERED: FLU QUADRIvalent (5+ YOA) 2018-2019 (AFLURIA) 0.5 ML IM ONE (15:00)
[2018-06-23] MEDS ORDERED: [UNRECOGNIZED DRUG - MIXTURE] IV SCH ×5 (15:00)
--- OUTSIDE RECORDS SUMMARY | 2018-06-23 15:14 | XMS REPORT | Continuity of Care Document ---
Author Author [facility] Organization [facility] Address Unknown Phone Unavailable Allergies Active Description Code Type Severity Reaction Onset Reported/Identified Relationship to Patient Clinical Status Yes No Known Drug Allergies [id number] Drug Allergy Unknown N/A 06/09/2010 Medications There is no data. Problems Date Dx Coded Attending Type Code Diagnosis Diagnosed By 05/18/2017 KANE ELLIS, CARMELITA Mchugh Ot 721.3 LUMBOSACRAL SPONDYLOSIS 05/21/2017 CARMELITA MIDDLETON MD, Ot 721.3 LUMBOSACRAL SPONDYLOSIS 05/26/2017 EMELIA JOHANSEN CLINICAL ESTHETICIAN Ot M43.16 SPONDYLOLISTHESIS, LUMBAR REGION 05/26/2017 EMELIA JOHANSEN CLINICAL ESTHETICIAN Ot M46.86 OTHER SPECIFIED INFLAMMATORY SPONDYLOPAT 05/26/2017 EMELIA JOHANSEN CLINICAL ESTHETICIAN Ot M47.816 SPONDYLOSIS W/O MYELOPATHY OR RADICULOPA 05/26/2017 EMELIA JOHANSEN CLINICAL ESTHETICIAN Ot M51.26 OTHER INTERVERTEBRAL DISC DISPLACEMENT, 06/16/2017 EMELIA JOHANSEN CLINICAL ESTHETICIAN Ot M43.16 SPONDYLOLISTHESIS, LUMBAR REGION 06/16/2017 EMELIA JOHANSEN CLINICAL ESTHETICIAN Ot M46.86 OTHER SPECIFIED INFLAMMATORY SPONDYLOPAT 06/16/2017 EMELIA JOHANSEN CLINICAL ESTHETICIAN Ot M47.816 SPONDYLOSIS W/O MYELOPATHY OR RADICULOPA 06/16/2017 EMELIA JOHANSEN CLINICAL ESTHETICIAN Ot M51.26 OTHER INTERVERTEBRAL DISC DISPLACEMENT, 01/12/2018 GRACIELA GUSMAN CLINICAL ESTHETICIAN Ot K21.9 GASTRO-ESOPHAGEAL REFLUX DISEASE WITHOUT 01/12/2018 GRACIELA GUSMAN CLINICAL ESTHETICIAN Ot R19.7 DIARRHEA, UNSPECIFIED 01/12/2018 GRACIELA GUSMAN CLINICAL ESTHETICIAN Ot R63.0 ANOREXIA 02/23/2018 CARMELITA MIDDLETON MD Ot 721.3 LUMBOSACRAL SPONDYLOSIS 02/23/2018 EMELIA JOHANSEN CLINICAL ESTHETICIAN Ot M43.16 SPONDYLOLISTHESIS, LUMBAR REGION 02/23/2018 EMELIA JOHANSEN Kwadwo CLINICAL ESTHETICIAN Ot M46.86 OTHER SPECIFIED INFLAMMATORY SPONDYLOPAT 02/23/2018 EMELIA JOHANSEN Kwadwo CLINICAL ESTHETICIAN Ot M47.816 SPONDYLOSIS W/O MYELOPATHY OR RADICULOPA 02/23/2018 EMELIA JOHANSEN Kwadwo CLINICAL ESTHETICIAN Ot M51.26 OTHER INTERVERTEBRAL DISC DISPLACEMENT, 02/23/2018 LUIS CARLOS GUSMANEthan Garner CLINICAL ESTHETICIAN Ot K21.9 GASTRO-ESOPHAGEAL REFLUX DISEASE WITHOUT 02/23/2018 GRACIELA GUSMAN CLINICAL ESTHETICIAN Ot R19.7 DIARRHEA, UNSPECIFIED 02/23/2018 NASEEMGRACIELA CLINICAL ESTHETICIAN Ot R63.0 ANOREXIA 02/24/2018 CARMELITA MIDDLETON MD Ot M17.12 UNILATERAL PRIMARY OSTEOARTHRITIS, LEFT 03/07/2018 CARMELITA MIDDLETON MD Ot M17.12 UNILATERAL PRIMARY OSTEOARTHRITIS, LEFT 03/14/2018 CARMELITA MIDDLETON MD Ot M23.232 DERANG OF MEDIAL MENISCUS DUE TO OLD TEA 03/14/2018 CARMELITA MIDDLETON MD Ot M23.242 DERANG OF ANT HORN OF LAT MENSC DUE TO O 03/14/2018 CARMELITA MIDDLETON MD Ot M23.252 DERANG OF POST HORN OF LAT MENSC DUE TO 03/14/2018 CARMELITA MIDDLETON MD Ot M65.9 SYNOVITIS AND TENOSYNOVITIS, UNSPECIFIED 03/21/2018 CARMELITA MIDDLETON MD Ot M23.232 DERANG OF MEDIAL MENISCUS DUE TO OLD TEA 03/21/2018 CARMELITA MIDDLETON MD Ot M23.242 DERANG OF ANT HORN OF LAT MENSC DUE TO O 03/21/2018 CARMELITA MIDDLETON MD Ot M23.252 DERANG OF POST HORN OF LAT MENSC DUE TO 03/21/2018 CARMELITA MIDDLETON MD Ot M65.9 SYNOVITIS AND TENOSYNOVITIS, UNSPECIFIED Procedures There is no data. Results Test Result Range Complete blood count (CBC) with automated white blood cell (WBC) differential - 06/23/18 09:38 Blood leukocytes automated count (number/volume) 11.2 10*3/uL 4.3-11.0 Blood erythrocytes automated count (number/volume) 4.61 10*6/uL 4.35-5.85 Venous blood hemoglobin measurement (mass/volume) 14.8 g/dL 13.3-17.7 Blood hematocrit (volume fraction) 42 % 40-54 Automated erythrocyte mean corpuscular volume 91 [foz_us] 80-99 Automated erythrocyte mean corpuscular hemoglobin (mass per erythrocyte) 32 pg 25-34 Automated erythrocyte mean corpuscular hemoglobin concentration measurement ( mass/volume) 35 g/dL 32-36 Automated erythrocyte distribution width ratio 12.8 % 10.0-14.5 Automated blood platelet count (count/volume) 244 10*3/uL 130-400 Automated blood platelet mean volume measurement 9.9 [foz_us] 7.4-10.4 Automated blood neutrophils/100 leukocytes 85 % 42-75 Automated blood lymphocytes/100 leukocytes 7 % 12-44 Blood monocytes/100 leukocytes 7 % 0-12 Automated blood eosinophils/100 leukocytes 2 % 0-10 Automated blood basophils/100 leukocytes 0 % 0-10 Blood neutrophils automated count (number/volume) 9.4 10*3 1.8-7.8 Blood lymphocytes automated count (number/volume) 0.7 10*3 1.0-4.0 Blood monocytes automated count (number/volume) 0.8 10*3 0.0-1.0 Automated eosinophil count 0.2 10*3/uL 0.0-0.3 Automated blood basophil count (count/volume) 0.0 10*3/uL 0.0-0.1 Comprehensive metabolic panel - 06/23/18 09:38 Serum or plasma sodium measurement (moles/volume) 135 mmol/L 135-145 Serum or plasma potassium measurement (moles/volume) 3.4 mmol/L 3.6-5.0 Serum or plasma chloride measurement (moles/volume) 101 mmol/L 98-107 Carbon dioxide 23 mmol/L 21-32 Serum or plasma anion gap determination (moles/volume) 11 mmol/L 5-14 Serum or plasma urea nitrogen measurement (mass/volume) 18 mg/dL 7-18 Serum or plasma creatinine measurement (mass/volume) 1.14 mg/dL 0.60-1.30 Serum or plasma urea nitrogen/creatinine mass ratio 16 NRG Serum or plasma creatinine measurement with calculation of estimated glomerular filtration rate > NRG Serum or plasma glucose measurement (mass/volume) 136 mg/dL 70-105 Serum or plasma calcium measurement (mass/volume) 9.8 mg/dL 8.5-10.1 Serum or plasma total bilirubin measurement (mass/volume) 0.7 mg/dL 0.1-1.0 Serum or plasma alkaline phosphatase measurement (enzymatic activity/volume) 43 U/L 40-136 Serum or plasma aspartate aminotransferase measurement (enzymatic activity/ volume) 32 U/L 5-34 Serum or plasma alanine aminotransferase measurement (enzymatic activity/volume ) 37 U/L 0-55 Serum or plasma protein measurement (mass/volume) 7.6 g/dL 6.4-8.2 Serum or plasma albumin measurement (mass/volume) 4.5 g/dL 3.2-4.5 CALCIUM CORRECTED 9.4 mg/dL 8.5-10.1 Lipase - 06/23/18 09:38 Lipase 446 U/L 8-78 Blood manual differential performed detection - 06/23/18 09:38 Blood monocytes/100 leukocytes 4 % NRG Manual blood segmented neutrophils/100 leukocytes 84 % NRG Blood band neutrophils/100 leukocytes 1 % NRG Manual blood lymphocytes/100 leukocytes 3 % NRG Manual eosinophils/100 leukocytes in nose 1 % NRG Manual blood basophils/100 leukocytes 0 % NRG Blood lymphocytes variant/100 leukocytes 7 % NRG Blood toxic granules detection by light microscopy 1+ NRG Blood poikilocytosis detection by light microscopy SLIGHT NRG Blood stomatocytes detection by light microscopy SLIGHT NRG Blood platelet clump detection by light microscopy SLIGHT NRG Complete urinalysis with reflex to culture - 06/23/18 11:40 Urine color determination YELLOW NRG Urine clarity determination CLEAR NRG Urine pH measurement by test strip 6.5 5-9 Specific gravity of urine by test strip 1.010 1.016- 1.022 Urine protein assay by test strip, semi-quantitative 1+ NEGATIVE Urine glucose detection by automated test strip NEGATIVE NEGATIVE Erythrocytes detection in urine sediment by light microscopy NEGATIVE NEGATIVE Urine ketones detection by automated test strip NEGATIVE NEGATIVE Urine nitrite detection by test strip NEGATIVE NEGATIVE Urine total bilirubin detection by test strip NEGATIVE NEGATIVE Urine urobilinogen measurement by automated test strip (mass/volume) NORMAL NORMAL Urine leukocyte esterase detection by dipstick NEGATIVE NEGATIVE Automated urine sediment erythrocyte count by microscopy (number/high power field) RARE NRG Automated urine sediment leukocyte count by microscopy (number/high power field ) RARE NRG Bacteria detection in urine sediment by light microscopy NEGATIVE NRG Squamous epithelial cells detection in urine sediment by light microscopy RARE NRG Crystals detection in urine sediment by light microscopy NONE NRG Casts detection in urine sediment by light microscopy NONE NRG Mucus detection in urine sediment by light microscopy NEGATIVE NRG Complete urinalysis with reflex to culture NO NRG Renal epithelial cells detection in urine sediment by light microscopy NONE NRG Encounters ACCT No. Visit Date/Time Discharge Status Pt. Type Provider Facility Loc./Unit Complaint [id number] 03/10/2018 09:52:00 03/10/2018 23:59:59 CLS Outpatient CARMELITA MIDDLETON MD [facility] RAD PAIN IN LEFT KNEE M25.562 [id number] 02/23/2018 10:23:00 02/23/2018 23:59:59 CLS Outpatient CARMELITA MIDDLETON MD [facility] RAD M25.562 [id number] 01/11/2018 11:44:00 01/11/2018 23:59:59 CLS Preadmit GRACIELA GUSMAN APRN [facility] CARD RUQ PAIN,NAUSEA, DECREASED APPETITE,DIARRHEA [id number] 01/11/2018 08:15:00 01/11/2018 23:59:59 CLS Outpatient GRACIELA GUSMAN APRN [facility] RAD RUQ PAIN [id number] 05/25/2017 08:17:00 05/25/2017 23:59:59 CLS Outpatient EMELIA JOHANSEN APRN [facility] RAD LOW BACK PAIN [id number] 02/14/2014 07:16:00 02/14/2014 23:59:59 CLS Outpatient CARMELITA MIDDLETON MD [facility] RAD LBP,LUMBAGO,NUMBNESS IN L LEG [id number] 06/23/2018 12:39:00 ACT Inpatient BRYNN ELLIS, DICK Garner [facility] 4TH PANCREATITIS,RUQ PAIN [id number] 06/23/2018 07:40:00 PEN Preadmit GRACIELA GUSMAN APRN [facility] CARD RUQ PAIN,GASTRO-ESOPHAGEAL REFLUX DISEASE
[2018-06-23 16:07] VITALS: BP 158/90
--- NOTE | 2018-06-23 16:52 | Consultation ---
History of Present Illness History of Present Illness Patient Consulted On(sravan/time) 06/23/18 16:46 Time Seen by Provider: 15:42 History of Present Illness Surgery asked to consult regarding Pancreatitis and possible GB problems. HPI per IM: Pt is a 62yoCM with a PMH of HTN who presented to the ER due to RUQ pain. He states his symptoms have been going on and off for the past few months. He underwent abdominal usg in 12/2017 which revealed no gallstones and mild hepatomegaly. His symptoms continued to worsen and he was seen by his PCP yesterday where he was prescribed oxycodone and and a hepatobillary scan was ordered for tomorrow. His pain continued to worsen and did not improve with the oxycodone he was prescribed prompting him to seek care in the ER. He does endorse a history of daily alcohol use. Pt states the pain started last weekend and it did occur after he started drinking. He drinks hard alcohol, at least a fifth; but was very non-commital about exactly how much. His only answer was "too much". He states he has had this pain before and it's always when he drinks. He doesn't think the pain occurs with food. He rates the pain as 7-8 out of 10, dull and squeezing. Most of the pain is in the upper abdomen and goes straight through to his back, but he also has some pain in the RUQ. Allergies and Home Medications Allergies Coded Allergies: No Known Drug Allergies (Unverified , 06/09/10) Home Medications Alprazolam 0.5 Mg Tablet, 0.5 MG PO TID PRN for ANXIETY, (Reported) Aspirin 81 Mg Tablet.dr, 81 MG PO DAILY, (Reported) Bacillus Coagulans 1 Each Tab.chew, 2 TAB PO DAILY, (Reported) Citalopram Hydrobromide 20 Mg Tablet, 20 MG PO DAILY, (Reported) Fenofibrate,Micronized 200 Mg Capsule, 200 MG PO DAILY, (Reported) Glucosamine/D3/Boswellia Jesi 1 Each Tablet, 2 TAB PO DAILY, (Reported) Losartan/Hydrochlorothiazide 1 Each Tablet, 1 TAB PO DAILY, (Reported) Multivitamin/Iron/Folic Acid 1 Each Tablet, 1 TAB PO DAILY, (Reported) [place] 3 Polyunsat Fatty Acids 1,000 Mg Cap, 2,000 MG PO DAILY, (Reported) Oxycodone HCl/Acetaminophen 1 Each Tablet, 1 TAB PO Q6H PRN for PAIN-MODERATE, ( Reported) Pantoprazole Sodium 40 Mg Tablet.dr, 40 MG PO DAILY, (Reported) Simvastatin 40 Mg Tablet, 40 MG PO DAILY, (Reported) Patient Home Medication List Home Medication List Reviewed: Yes Past Llxosnh-Oemdmm-Lksnqf Hx Patient Social History Alcohol Use: Regular Use Number of Drinks Today: 3 Recreational Drug Use: No Smoking Status: Current Someday Smoker Recent Foreign Travel: No Contact w/Someone Who Travel: No Recent Infectious Disease Expo: No Recent Hopitalizations: No Physical Abuse Screen: No Sexual Abuse: No Seasonal Allergies Seasonal Allergies: No Surgeries History of Surgeries: Yes (SPINE) Surgeries: Orthopedic (back surgery) Respiratory History of Respiratory Disorde: No Cardiovascular History of Cardiac Disorders: Yes Cardiac Disorders: High Cholesterol, Hypertension Neurological History of Neurological Disord: No Genitourinary History of Genitourinary Disor: No Gastrointestinal History of Gastrointestinal Di: Yes Gastrointestinal Disorders: Pancreatitis Musculoskeletal History of Musculoskeletal Dis: No Endocrine History of Endocrine Disorders: No HEENT History of HEENT Disorders: No Cancer History of Cancer: No Psychosocial History of Psychiatric Problem: No Integumentary History of Skin or Integumenta: No Family Medical History Significant Family History: Diabetes (mother), Other Conditions/Hx (Father of ALS) Review of Systems-General Constitutional: malaise, weakness EENTM: No hearing loss, No blurred vision, No mouth swelling, No epistaxis Respiratory: No cough, No dyspnea on exertion, No hemoptysis Cardiovascular: No chest pain, No edema, No palpitations Gastrointestinal: abdominal pain; No jaundice; loss of appetite, vomiting Genitourinary: No dysuria, No frequency, No hematuria Musculoskeletal: back pain, joint pain, joint swelling, muscle pain Skin: No change in color, No change in hair/nails Psychiatric/Neurological: Denies Anxiety, Denies Depressed, Denies Tremors, Denies Weakness Other pt denies any abnormal bleeding or bruising, no heat or cold intolerance Physical Exam-General Problems Physical Exam Vital Signs Vital Signs - First Documented 06/23/18 09:20 Temp 98.6 Pulse 58 Resp 16 B/P (MAP) 162/92 (115) Pulse Ox 97 O2 Delivery Room Air Capillary Refill : Less Than 3 Seconds General Appearance: WD/WN, mild distress Eyes: Bilateral Eye PERRL, Bilateral Eye EOMI HEENT: pharynx normal; No scleral icterus (R), No scleral icterus (L); other ( poor dentition) Neck: full range of motion, supple Respiratory: chest non-tender, lungs clear, normal breath sounds, no respiratory distress, no accessory muscle use Cardiovascular: regular rate, rhythm, no edema, no murmur Gastrointestinal: soft, no pulsatile mass, tenderness (mostly midepigastric but some in RUQ and RLQ), hepatomegaly Back: no CVA tenderness, no vertebral tenderness Extremities: no pedal edema, no calf tenderness, normal capillary refill 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, no motor/sensory deficits, alert, normal mood/affect, oriented x 3 Skin: normal color, warm/dry Lymphatic: no adenopathy (neck, axilla or groin) Data Review Labs Laboratory Tests 06/23/18 09:35: Triglycerides Level 132, Cholesterol Level 155, LDL Cholesterol Direct 75, VLDL Cholesterol 26, HDL Cholesterol 57 06/23/18 09:38: White Blood Count 11.2H, Red Blood Count 4.61, Hemoglobin 14.8, Hematocrit 42, Mean Corpuscular Volume 91, Mean Corpuscular Hemoglobin 32, Mean Corpuscular Hemoglobin Concent 35, Red Cell Distribution Width 12.8, Platelet Count 244, Mean Platelet Volume 9.9, Neutrophils (%) (Auto) 85H, Lymphocytes (%) (Auto) 7L , Monocytes (%) (Auto) 7, Eosinophils (%) (Auto) 2, Basophils (%) (Auto) 0, Neutrophils # (Auto) 9.4H, Lymphocytes # (Auto) 0.7L, Monocytes # (Auto) 0.8, Eosinophils # (Auto) 0.2, Basophils # (Auto) 0.0, Neutrophils % (Manual) 84, Lymphocytes % (Manual) 3, Monocytes % (Manual) 4, Eosinophils % (Manual) 1, Basophils % (Manual) 0, Band Neutrophils 1, Reactive Lymphocytes 7, Toxic Granulation 1+, Clumped Platelets SLIGHT, Poikilocytosis SLIGHT, Stomatocytes SLIGHT, Sodium Level 135, Potassium Level 3.4L, Chloride Level 101, Carbon Dioxide Level 23, Anion Gap 11, Blood Urea Nitrogen 18, Creatinine 1.14, Estimat Glomerular Filtration Rate > 60, BUN/Creatinine Ratio 16, Glucose Level 136H, Calcium Level 9.8, Corrected Calcium 9.4, Total Bilirubin 0.7, Aspartate Amino Transf (AST/SGOT) 32, Alanine Aminotransferase (ALT/SGPT) 37, Alkaline Phosphatase 43, Total Protein 7.6, Albumin 4.5, Lipase 446H 06/23/18 11:40: Urine Color YELLOW, Urine Clarity CLEAR, Urine pH 6.5, Urine Specific [place] 1.010L, Urine Protein 1+H, Urine Glucose (UA) NEGATIVE, Urine Ketones NEGATIVE, Urine Nitrite NEGATIVE, Urine Bilirubin NEGATIVE, Urine Urobilinogen NORMAL, Urine Leukocyte Esterase NEGATIVE, Urine RBC (Auto) NEGATIVE, Urine RBC RARE, Urine WBC RARE, Urine Squamous Epithelial Cells RARE, Urine Renal Epithelial Cells NONE, Urine Crystals NONE, Urine Bacteria NEGATIVE, Urine Casts NONE, Urine Mucus NEGATIVE, Urine Culture Indicated NO Assessment/Plan Assessment/Plan Assessment/Plan Pancreatitis HTN Pt most likely has pancreatitis (proven by CT and labs) secondary to his alcohol consumption. He had an US in December which showed no gallstones and is scheduled for a HIDA scan. If the HIDA is positive he may need his GB out; however, I don't think that will have any effect on his pancreatitis. He needs to stop drinking. CT does not show any necrosis or need for surgical intervention at this time. I will follow along and check the HIDA scan tomorrow and make sure pt is not getting worse. Clinical Quality Measures DVT/VTE Risk/Contraindication: Risk Factor Score Per Nursin RFS Level Per Nursing on Admit: 3=High JOSEPH CHINO DO Jun 23, 2018 16:52
[2018-06-23] MEDS: morphine INJ 10 MG/ML 1ML (SYR OR VIAL) IV PRN ×2 (17:10→21:36)
[2018-06-23 19:47] VITALS: BP 163/95
[2018-06-24 00:49] VITALS: BP 153/90
[2018-06-24 04:00] VITALS: BP 177/87
[2018-06-24] MEDS: D5 1/2 NS W/KCL 20 MEQ/L 1,000 ML IV SCH (05:25)
[2018-06-24 05:58] LABS: BASOPHILS % (AUTO) 0 % (0-10); EOSINOPHILS # (AUTO) 0.3 10^3/uL (0.0-0.3); EOSINOPHILS % (AUTO) 3 % (0-10); HEMATOCRIT 40 % (40-54); LYMPHOCYTES # (AUTO) 0.9 X 10^3 (1.0-4.0); LYMPHOCYTES % (AUTO) 9 % (12-44); MEAN CORPUSCULAR HEMOGLOBIN 33 PG (25-34); MEAN CORPUSCULAR HGB CONC 35 G/DL (32-36); MEAN CORPUSCULAR VOLUME 93 FL (80-99); MEAN PLATELET VOLUME 9.7 FL (7.4-10.4); MONOCYTES # (AUTO) 0.9 X 10^3 (0.0-1.0); MONOCYTES % (AUTO) 8 % (0-12); NEUTROPHILS # (AUTO) 8.8 X 10^3 (1.8-7.8); NEUTROPHILS % (AUTO) 80 % (42-75); PLATELET COUNT 234 10^3/uL (130-400); RED CELL DISTRIBUTION WIDTH 13.2 % (10.0-14.5); WHITE BLOOD COUNT 10.9 10^3/uL (4.3-11.0)
[2018-06-24 06:20] LABS: ALANINE AMINOTRANSFERASE 25 U/L (0-55); ALKALINE PHOSPHATASE 37 U/L (40-136); BILIRUBIN,TOTAL 0.7 MG/DL (0.1-1.0); BUN/CREATININE RATIO 10; CALCIUM 8.9 MG/DL (8.5-10.1); CARBON DIOXIDE 20 MMOL/L (21-32); CHLORIDE 105 MMOL/L (98-107); CREATININE SERUM 1.02 MG/DL (0.60-1.30); GFR ESTIMATED > 60; GLUCOSE 121 MG/DL (70-105); LIPASE 136 U/L (8-78); POTASSIUM 3.9 MMOL/L (3.6-5.0); SODIUM 137 MMOL/L (135-145); TOTAL PROTEIN 6.7 GM/DL (6.4-8.2)
[2018-06-24 08:00] VITALS: BP 134/88
--- NOTE | 2018-06-24 10:13 | Diagnostic Imaging Report ---
INDICATION: Abdominal pain. TECHNIQUE: Acquisitions were acquired over the abdomen after the administration of 5.46 mCi of technetium 99m Choletec. The ejection fraction was calculated after the patient ingested 8 ounces of Ensure. FINDINGS: There is homogeneous uptake of isotope throughout the liver. There is significant accumulation within the gallbladder by 30 minutes. There is free flow of activity in the small bowel. The ejection fraction is 31.9%. IMPRESSION: No evidence of cystic duct obstruction; however, there is a slightly low ejection fraction of 31.9%. Recommend clinical correlation. Dictated by: Dictated on workstation # [id number]
--- NOTE | 2018-06-24 10:30 | Discharge Inst-Simple/Standard ---
Discharge Inst-Standard Patient Instructions/Follow Up Plan of Care/Instructions/FU: Please continue to take your medications as written. Please follow up with Dr Doran and Dr Gallo as scheduled. Activity as Tolerated: Yes Discharge Diet: Low Residue Return to The Hospital For: Worsening abdominal pain, fever, confusion, if you feel your symptoms are getting worse. Planned Outpatient Orders/Ref. Pneu Vac Indicated: Yes DICK SWAIN MD Jun 24, 2018 10:30
--- NOTE | 2018-06-24 10:35 | Discharge Summary-Hospitalist ---
Diagnosis/Chief Complaint Date of Admission Jun 23, 2018 at 12:39 Date of Discharge Discharge Date: Jun 24, 2018 Admission Diagnosis Pancreatitis Discharge Diagnosis (1) Pancreatitis Status: Acute Assessment & Plan: Pancreatitis noted on CT Lipase 446 NPO IVF Fentanyl prn pain Surgery consulted (2) CAP (community acquired pneumonia) Assessment & Plan: Will cover with cap coverage given mild leukocytosis Not sepsis Some pain may be referred from pneumonia (3) Right upper quadrant pain Status: Acute Assessment & Plan: Hepatobiliary scan tomorrow Surgery consulted, appreciate recs (4) Alcohol dependence Status: Acute (5) Essential (primary) hypertension Assessment & Plan: Elevated on arrival, likely due to pain Trend Discharge Summary Procedures/Consulations Dr Gallo- Surgery Discharge Physical Exam Allergies: Coded Allergies: No Known Drug Allergies (Unverified , 06/09/10) Vitals & I&Os Vital Signs Date Time Temp Pulse Resp B/P (MAP) Pulse Ox O2 Delivery O2 Flow Rate FiO2 06/24/18 07:12 66 06/24/18 04:00 99.8 16 177/87 (117) 96 Room Air General Appearance: No Apparent Distress, WD/WN Gastrointestinal: Normal Bowel Sounds, Non Tender, Soft Hospital Course Pt was admitted for pancreatitis. He underwent HIDA scan which revealed slight gallbladder dysfunction. He was treated with IV fluids and pain medication and his symptoms improved significantly. Surgery was consulted and will follow up with him as an outpatient. He had an uneventful hospital stay and was requesting DC home on day of discharge. We discussed his need to quit drinking alcohol in excess in ordered to prevent further episodes of pancreatitis. He was discharged home in stable condition. I did call and discuss he case with Dr Doran, his PCP who he will see in follow up as well. Labs (last 24 hrs) Laboratory Tests 06/23/18 11:40: Urine Color YELLOW, Urine Clarity CLEAR, Urine pH 6.5, Urine Specific [place] 1.010L, Urine Protein 1+H, Urine Glucose (UA) NEGATIVE, Urine Ketones NEGATIVE, Urine Nitrite NEGATIVE, Urine Bilirubin NEGATIVE, Urine Urobilinogen NORMAL, Urine Leukocyte Esterase NEGATIVE, Urine RBC (Auto) NEGATIVE, Urine RBC RARE, Urine WBC RARE, Urine Squamous Epithelial Cells RARE, Urine Renal Epithelial Cells NONE, Urine Crystals NONE, Urine Bacteria NEGATIVE, Urine Casts NONE, Urine Mucus NEGATIVE, Urine Culture Indicated NO 06/24/18 05:15: White Blood Count 10.9, Red Blood Count 4.30L, Hemoglobin 14.0, Hematocrit 40, Mean Corpuscular Volume 93, Mean Corpuscular Hemoglobin 33, Mean Corpuscular Hemoglobin Concent 35, Red Cell Distribution Width 13.2, Platelet Count 234, Mean Platelet Volume 9.7, Neutrophils (%) (Auto) 80H, Lymphocytes (%) (Auto) 9L , Monocytes (%) (Auto) 8, Eosinophils (%) (Auto) 3, Basophils (%) (Auto) 0, Neutrophils # (Auto) 8.8H, Lymphocytes # (Auto) 0.9L, Monocytes # (Auto) 0.9, Eosinophils # (Auto) 0.3, Basophils # (Auto) 0.0, Sodium Level 137, Potassium Level 3.9, Chloride Level 105, Carbon Dioxide Level 20L, Anion Gap 12, Blood Urea Nitrogen 10, Creatinine 1.02, Estimat Glomerular Filtration Rate > 60, BUN/ Creatinine Ratio 10, Glucose Level 121H, Calcium Level 8.9, Corrected Calcium 8.9, Total Bilirubin 0.7, Aspartate Amino Transf (AST/SGOT) 21, Alanine Aminotransferase (ALT/SGPT) 25, Alkaline Phosphatase 37L, Total Protein 6.7, Albumin 4.0, Lipase 136H Patient resulted labs reviewed. Pending Labs Laboratory Tests 06/24/18 05:15: White Blood Count 10.9, Red Blood Count 4.30, Hemoglobin 14.0, Hematocrit 40, Mean Corpuscular Volume 93, Mean Corpuscular Hemoglobin 33, Mean Corpuscular Hemoglobin Concent 35, Red Cell Distribution Width 13.2, Platelet Count 234, Mean Platelet Volume 9.7, Neutrophils (%) (Auto) 80, Lymphocytes (%) (Auto) 9, Monocytes (%) (Auto) 8, Eosinophils (%) (Auto) 3, Basophils (%) (Auto) 0, Neutrophils # (Auto) 8.8, Lymphocytes # (Auto) 0.9, Monocytes # (Auto) 0.9, Eosinophils # (Auto) 0.3, Basophils # (Auto) 0.0, Sodium Level 137, Potassium Level 3.9, Chloride Level 105, Carbon Dioxide Level 20, Anion Gap 12, Blood Urea Nitrogen 10, Creatinine 1.02, Estimat Glomerular Filtration Rate > 60, BUN/ Creatinine Ratio 10, Glucose Level 121, Calcium Level 8.9, Corrected Calcium 8.9 , Total Bilirubin 0.7, Aspartate Amino Transf (AST/SGOT) 21, Alanine Aminotransferase (ALT/SGPT) 25, Alkaline Phosphatase 37, Total Protein 6.7, Albumin 4.0, Lipase 136 Imaging: Reviewed Imaging Report Discussion & Recommendations Discharge Planning: <30 minutes discharge planning Discharge Home Medications: Active Scripts Active Reported Osteo Bi-Flex Tablet (Glucosamine/D3/Boswellia Jesi) 1 Each Tablet 2 Tab PO DAILY Fish Oil 1,000 mg Capsule ([place] 3 Polyunsat Fatty Acids) 1,000 Mg Cap 2,000 Mg PO DAILY Centrum Adults Tablet (Multivitamin/Iron/Folic Acid) 1 Each Tablet 1 Tab PO DAILY Aspirin EC (Aspirin) 81 Mg Tablet.dr 81 Mg PO DAILY Probiotic (Bacillus Coagulans) 1 Each Tab.chew 2 Tab PO DAILY Pantoprazole Sodium 40 Mg Tablet.dr 40 Mg PO DAILY Alprazolam 0.5 Mg Tablet 0.5 Mg PO TID PRN Losartan-Hctz 100-12.5 mg Tab (Losartan/Hydrochlorothiazide) 1 Each Tablet 1 Tab PO DAILY Citalopram HBr (Citalopram Hydrobromide) 20 Mg Tablet 20 Mg PO DAILY Fenofibrate (Fenofibrate,Micronized) 200 Mg Capsule 200 Mg PO DAILY Simvastatin 40 Mg Tablet 40 Mg PO DAILY Oxycodone-Acetaminophen 10-325 (Oxycodone HCl/Acetaminophen) 1 Each Tablet 1 Tab PO Q6H PRN Instructions to patient/family Please see electronic discharge instructions given to patient. Clinical Quality Measures DVT/VTE Risk/Contraindication: Risk Factor Score Per Nursin RFS Level Per Nursing on Admit: 3=High Problem Qualifiers (1) Pancreatitis: Chronicity: acute Pancreatitis type: alcohol induced Acute pancreatitis complication: no infection or necrosis Qualified Codes: K85.20 - Alcohol induced acute pancreatitis without necrosis or infection (2) CAP (community acquired pneumonia): Laterality: right Lung location: lower lobe of lung Qualified Codes: J18.1 - Lobar pneumonia, unspecified organism (3) Alcohol dependence: Substance use status: other alcohol-induced disorder Qualified Codes: F10.288 - Alcohol dependence with other alcohol-induced disorder DICK SWAIN MD Jun 24, 2018 10:35
[2018-06-24] MEDS: PANTOPRAZOLE 40 MG (PROTONIX) VIAL IV SCH (10:40)
--- NOTE | 2018-06-24 11:11 | Progress Note ---
Subjective Time Seen by a Provider: 10:22 Subjective/Events-last exam Pt seen and examined, states most of his pain is gone and he drank an Ensure shake already. He is hungry. He did go down for his HIDA scan and it showed EF of 31%. Pt states he does occasionally get RUQ pain , but always thought it was his pancreatitis. Review of Systems General: No Chills, No Night Sweats Pulmonary: No Dyspnea, No Cough Cardiovascular: No: Chest Pain, Palpitations Gastrointestinal: Abdominal Pain; No: Nausea, Vomiting Objective Exam Vital Signs Date Time Temp Pulse Resp B/P (MAP) Pulse Ox O2 Delivery O2 Flow Rate FiO2 06/24/18 08:00 97.3 81 18 134/88 (103) 97 Room Air 06/24/18 07:12 66 06/24/18 04:00 99.8 75 16 177/87 (117) 96 Room Air 06/24/18 01:26 79 06/24/18 00:49 98.2 66 16 153/90 (111) 95 Room Air 06/23/18 19:47 98.2 69 14 163/95 (117) 92 Room Air 06/23/18 19:00 70 06/23/18 17:40 98.6 06/23/18 16:07 98.6 72 16 158/90 (112) 96 Room Air 06/23/18 16:07 59 06/23/18 13:30 98.6 76 16 144/82 98 Room Air 06/23/18 13:30 96 Room Air 06/23/18 13:22 76 16 144/82 (102) 98 Room Air I & O 06/24/18 07:00 Intake Total 0 ml Output Total 1600 ml Balance -1600 ml Capillary Refill : Less Than 3 Seconds General Appearance: No Apparent Distress, WD/WN HEENT: PERRL/EOMI, Moist Mucous Membranes Neck: Non Tender, Supple Respiratory: Lungs Clear, No Respiratory Distress Cardiovascular: Regular Rate, Rhythm, No Murmur Gastrointestinal: normal bowel sounds, soft, tenderness (improved compared to yesterday), hernia ([facility] incarcerated and b/l IH), other (Questionable small umbilical hernia) Extremity: Normal Capillary Refill, No Calf Tenderness Neurologic/Psychiatric: Alert, Oriented x3, Normal Mood/Affect Skin: Normal Color, Warm/Dry Results Lab Laboratory Tests 06/23/18 11:40: Urine Color YELLOW, Urine Clarity CLEAR, Urine pH 6.5, Urine Specific [place] 1.010L, Urine Protein 1+H, Urine Glucose (UA) NEGATIVE, Urine Ketones NEGATIVE, Urine Nitrite NEGATIVE, Urine Bilirubin NEGATIVE, Urine Urobilinogen NORMAL, Urine Leukocyte Esterase NEGATIVE, Urine RBC (Auto) NEGATIVE, Urine RBC RARE, Urine WBC RARE, Urine Squamous Epithelial Cells RARE, Urine Renal Epithelial Cells NONE, Urine Crystals NONE, Urine Bacteria NEGATIVE, Urine Casts NONE, Urine Mucus NEGATIVE, Urine Culture Indicated NO 06/24/18 05:15: White Blood Count 10.9, Red Blood Count 4.30L, Hemoglobin 14.0, Hematocrit 40, Mean Corpuscular Volume 93, Mean Corpuscular Hemoglobin 33, Mean Corpuscular Hemoglobin Concent 35, Red Cell Distribution Width 13.2, Platelet Count 234, Mean Platelet Volume 9.7, Neutrophils (%) (Auto) 80H, Lymphocytes (%) (Auto) 9L , Monocytes (%) (Auto) 8, Eosinophils (%) (Auto) 3, Basophils (%) (Auto) 0, Neutrophils # (Auto) 8.8H, Lymphocytes # (Auto) 0.9L, Monocytes # (Auto) 0.9, Eosinophils # (Auto) 0.3, Basophils # (Auto) 0.0, Sodium Level 137, Potassium Level 3.9, Chloride Level 105, Carbon Dioxide Level 20L, Anion Gap 12, Blood Urea Nitrogen 10, Creatinine 1.02, Estimat Glomerular Filtration Rate > 60, BUN/ Creatinine Ratio 10, Glucose Level 121H, Calcium Level 8.9, Corrected Calcium 8.9, Total Bilirubin 0.7, Aspartate Amino Transf (AST/SGOT) 21, Alanine Aminotransferase (ALT/SGPT) 25, Alkaline Phosphatase 37L, Total Protein 6.7, Albumin 4.0, Lipase 136H Assessment/Plan Assessment/Plan Assessment/Plan Pancreatitis HTN Pancreatitis is improving and Medicine plans on sending pt home today. I agree with this course and would like pt to follow up with me as an outpt. He probably will benefit from having his GB out because he has Biliary Dyskinesia; however, removing it will not affect his Pancreatitis. Pt must stop drinking; he agreed to this, but we will see if he is able to keep that commitment. Clinical Quality Measures DVT/VTE Risk/Contraindication: Risk Factor Score Per Nursin RFS Level Per Nursing on Admit: 3=High JOSEPH CHINO DO Jun 24, 2018 11:11
[2018-06-24 12:00] VITALS: BP 143/79
== END 2018-06-24 11:30 | disposition home or self-care (01) ==
LOC: EDUNIT# 09:03 → ER 09:04 → UNDOADMOB 12:39 → 4TH 12:39 → UNDODISOB 06-24 13:20
PROVIDERS: ADMIT Family Medicine; ATTEND Family Medicine
DX: K85.20 Alcohol induced acute pancreatitis without necrosis or infection (principal); J18.1 Lobar pneumonia, unspecified organism; K82.8 Other specified diseases of gallbladder; I10 Essential (primary) hypertension; E78.00 Pure hypercholesterolemia, unspecified; F10.288 Alcohol dependence with other alcohol-induced disorder; F17.210 Nicotine dependence, cigarettes, uncomplicated; Z79.899 Other long term (current) drug therapy
CPT/HCPCS: 36415; 74177; 78227; 80053; 80061; 81000; 83690; 85007; 85025; 85027; G0378

== ENCOUNTER → 2022-11-17 | Outpatient (CLI) | payer MEDICARE, OTHER ==
[~2022-11-17] MED LIST: ALPR0.5T7 PO; ASPI-1238 PO; BACI1TAB3 PO; CITA20TA9 PO; FENO200C27 PO; GLUC-219 PO; LOSA1TAB26 PO; MULT-1067 PO; OMG1KC PO; OXYC-556 PO; PANT40TA52 PO; SIMV40TA25 PO
--- NOTE | 2022-11-17 17:10 | Diagnostic Imaging Report ---
PROCEDURE: US Thyroid. TECHNIQUE: Multiple real-time grayscale images were obtained of the thyroid in various projections. INDICATION: Neck pain. Both lobes of the thyroid normal in size and echotexture with normal color Doppler blood flow. No solid or cystic mass. IMPRESSION: Normal thyroid ultrasound. Dictated on workstation # [id number]
== END ==
LOC: RAD 08:57
PROVIDERS: ATTEND Family Medicine
DX: M54.2 Cervicalgia (principal)
CPT/HCPCS: 76536